=== PATIENT | female | born 1945 | race Native Hawaiian/Other Pacific Islander ===

== ENCOUNTER 2017-08-06 10:08 | Inpatient (IN) | payer OTHER ==
[~2017-08-06] VITALS: Ht 152.4 cm; Wt 37.4 kg
[2017-08-06] VITALS (14 sets, daily range): BP systolic 117–160; BP diastolic 71–84; TEMP 97.7–98.7; Ht 152.4 cm; Wt 37.4 kg
[~2017-08-06 10:08] MED LIST: ACET-689 PO; AMLO2.5T PO; ATEN25TA21 PO; BUSP5TAB2 PO; BUSPIRONE HCL10 MG PO; BUSPIRONE5 MG PO; CADUET10 MG/10 M OR; CITALOPRAM20 MG PO; CODEINE/APAP1 TA1 PO; CYCL10TA35 PO; FURO20TA67 PO; GLIP10TA55 PO; HYDR-3182 PO; INSU100I2 SC; LANTUS SOLOSTAR SC; NEURONTIN800 MG PO; NOVOLIN R U-1001 ML IJ; OMEPRAZOLE20 M1 PO; OMEPRAZOLE20 MG OR; SIMV40TA57 PO; TRAM50TA PO; TRAMADOL HCL100 M1 PO
[2017-08-06] MEDS ORDERED: TIZA4TAB5 PO (10:28)
[2017-08-06] MEDS ORDERED: FURO20TA67 PO (10:29)
[2017-08-06] MEDS ORDERED: METO25TA4 OR (10:30)
[2017-08-06] MEDS ORDERED: BUSP5TAB2 PO (10:32)
[2017-08-06] MEDS ORDERED: INSUINJP SC (10:36)
[2017-08-06 12:30] LABS: PLATELET COUNT 286 K/uL (152-353)
[2017-08-06 12:40] LABS: POTASSIUM 4.5 mmol/L (3.6-5.2)
[2017-08-06 17:07] LABS: POTASSIUM 4.7 mmol/L (3.6-5.2)
[2017-08-06 23:58] LABS: POTASSIUM 3.7 mmol/L (3.6-5.2)
[2017-08-07] VITALS (24 sets, daily range): BP systolic 105–177; BP diastolic 54–88; TEMP 96.3–98.9
[2017-08-07 06:37] LABS: PLATELET COUNT 311 K/uL (152-353)
[2017-08-07 06:51] LABS: POTASSIUM 3.7 mmol/L (3.6-5.2)
[2017-08-07 12:51] LABS: POTASSIUM 3.7 mmol/L (3.6-5.2)
[2017-08-07 18:42] LABS: POTASSIUM 3.5 mmol/L (3.6-5.2)
[2017-08-08] VITALS (10 sets, daily range): BP systolic 155–181; BP diastolic 72–95; TEMP 97.6–98.3
[2017-08-08 06:29] LABS: PLATELET COUNT 188 K/uL (152-353)
[2017-08-08 08:46] LABS: POTASSIUM 3.1 mmol/L (3.6-5.2)
[2017-08-08] MEDS ORDERED: LANTUS100 MG/ML SC (10:35)
[2017-08-08] MEDS ORDERED: ACET-689 PO (10:40)
[2017-08-09 07:13] LABS: PLATELET COUNT 270 K/uL (152-353)
[2017-08-09 07:15] LABS: POTASSIUM 3.1 mmol/L (3.6-5.2)
[2017-08-09 08:23] VITALS: BP 133/64; TEMP 97.8
[2017-08-09 12:35] VITALS: BP 152/58; TEMP 97.8
[2017-08-09 16:43] VITALS: BP 172/85; TEMP 98
[2017-08-10 05:13] LABS: PLATELET COUNT 267 K/uL (152-353)
[2017-08-10 05:28] LABS: POTASSIUM 3.5 mmol/L (3.6-5.2)
[2017-08-10 09:15] VITALS: BP 140/71; TEMP 98
[2017-08-10 20:00] VITALS: BP 132/61; TEMP 98.7
[2017-08-11] VITALS: BP 142/66; TEMP 99
[2017-08-11 05:17] LABS: PLATELET COUNT 231 K/uL (152-353); POTASSIUM 3.9 mmol/L (3.6-5.2); SODIUM 132 mmol/L (136-145)
[2017-08-11 06:25] VITALS: BP 146/73; TEMP 98.9
[2017-08-11 08:00] VITALS: BP 146/66; TEMP 98.7
[2017-08-11 12:00] VITALS: BP 139/65; TEMP 98.9
[2017-08-11 16:00] VITALS: BP 146/74; TEMP 98.4
[2017-08-11 19:47] VITALS: BP 129/65; TEMP 99.2
[2017-08-12] VITALS: BP 129/73; TEMP 99.4
[2017-08-12 04:00] VITALS: BP 128/63; TEMP 98.5
[2017-08-12 05:40] LABS: PLATELET COUNT 220 K/uL (152-353)
[2017-08-12 06:00] LABS: POTASSIUM 3.6 mmol/L (3.6-5.2); SODIUM 133 mmol/L (136-145)
[2017-08-12 08:29] VITALS: BP 151/82; TEMP 98.7
== END 2017-08-12 10:50 | DRG 637 ==
LOC: ED 10:08 → ICU 13:00 → MED/SURG 08-08 11:40
PROVIDERS: Family Medicine
DX: E11.10 Type 2 diabetes mellitus with ketoacidosis without coma (principal); L89.893 Pressure ulcer of other site, stage 3; N39.0 Urinary tract infection, site not specified; E87.1 Hypo-osmolality and hyponatremia; E87.2 Acidosis; Z72.0 Tobacco use; D72.828 Other elevated white blood cell count; E83.51 Hypocalcemia; E83.42 Hypomagnesemia; F41.8 Other specified anxiety disorders; R06.09 Other forms of dyspnea; J44.9 Chronic obstructive pulmonary disease, unspecified; I10 Essential (primary) hypertension; B96.1 Klebsiella pneumoniae [K. pneumoniae] as the cause of diseases classified elsewhere
CPT/HCPCS: 36415; 36416; 36600; 80048; 80053; 81000; 81002; 82570; 82805; 82947; 82948; 82962; 83605; 83735; 83880; 84300; 84439; 84443; 84481; 85027; 85379; 87070; 87077; 87086; 87088; 87185; 87186; 87205; 96372; 99282; J1450; J1650; J1815; J2405; J3411; J3475; J3480; J3490

== ENCOUNTER 2018-01-25 14:10 | Outpatient (CLI) | payer OTHER ==
[~2018-01-25 14:10] MED LIST changes: +INSUINJP SC; +LANTUS100 MG/ML SC; +METO25TA4 OR; +TIZA4TAB5 PO
[2018-01-25] MEDS ORDERED: ALBUTEROL0.083 % IN (15:08)
[2018-01-25] MEDS ORDERED: TIZA4TAB5 PO (16:54)
[2018-01-25] MEDS ORDERED: CLOP75TA2 PO (16:55)
[2018-02-08] MEDS ORDERED: NYST100016 EX (10:49)
[2018-02-08] MEDS ORDERED: SOD CHLORIDE1 GM PO (10:49)
[2018-02-08] MEDS ORDERED: RISP0.25 PO (10:49)
[2018-02-08] MEDS ORDERED: BUSPIRONE10 MG PO (10:49)
[2018-02-08] MEDS ORDERED: MIRTAZAPINE7.5 MG PO (10:49)
[2018-02-08] MEDS ORDERED: LEXAPRO20 MG PO (10:49)
== END 2018-01-25 14:18 | disposition short-term general hospital (02) ==
LOC: AMB 14:10
DX: R41.82 Altered mental status, unspecified (principal)
CPT/HCPCS: A0425; A0429